=== PATIENT | female | born 1975 | race Caucasian/White ===

== ENCOUNTER 2018-11-15 08:40 | Emergency (ER) | payer OTHER ==
[~2018-11-15 08:40] MED LIST: AMOX500T PO; ARIP10TA9 PO; CLON1TAB PO; DOXY100C2 PO; FLUO40CA9 PO; GUAI-108 PO; HYDR-3165 PO; IBUP200T44 PO; IBUP800T19 PO; KETO10TA PO; LAMO200T2 PO; LISI-334 PO; LISI2.5T PO; METF10007 PO; [UNRECOGNIZED DRUG - OTHER] PO
[2018-11-15 08:57] VITALS: BP 163/99
--- NOTE | 2018-11-15 09:03 | PHYS DOC ---
Past History Past Medical History: Anxiety, Diabetes, Hypertension, Other Past Surgical History: No Surgical History Smoking: Cigarettes, Greater than 1 pack/day Alcohol Use: None Drug Use: None Adult General Chief Complaint Chief Complaint: TEST [facility] HPI 43-year-old female presents with question of . The patient states that God told her that she is even though she had tubal ligation 20 years ago. She took a urine test which was negative at home. She is here for a blood test to confirm her . The patient is on psychiatric medications for bipolar and does not want to take these medications if she is . The patient had some spotting bleeding about 2 months ago. She has had intermittent bleeding since her tubal ligation that is irregular and hard to predict. She d enies fever or chills. Review of Systems Review of Systems Constitutional: Denies fever or chills [] Eyes: Denies change in visual acuity, redness, or eye pain [] HENT: Denies nasal congestion or sore throat [] Respiratory: Denies cough or shortness of breath [] Cardiovascular: No additional information not addressed in HPI [] GI: Denies abdominal pain, nausea, vomiting, bloody stools or diarrhea [] : Denies dysuria or hematuria [] Musculoskeletal: Denies back pain or joint pain [] Integument: Denies rash or skin lesions [] Neurologic: Denies headache, focal weakness or sensory changes [] Endocrine: Denies polyuria or polydipsia [] All other systems were reviewed and found to be within normal limits, except as documented in this note. Allergies Allergies Allergies Coded Allergies Type Severity Reaction Last Updated Verified No Known Drug Allergies 12/20/13 No Physical Exam Physical Exam Constitutional: Well developed, well nourished, no acute distress, non-toxic appearance. [] HENT: Normocephalic, atraumatic, bilateral external ears normal, oropharynx moist, no oral exudates, nose normal. [] Eyes: PERRLA, EOMI, conjunctiva normal, no discharge. [] Neck: Normal range of motion, no tenderness, supple, no stridor. [] Cardiovascular:Heart rate regular rhythm, no murmur [] Lungs & Thorax: Bilateral breath sounds clear to auscultation [] Abdomen: Bowel sounds normal, soft, no tenderness, no masses, no pulsatile masses. [] Skin: Warm, dry, no erythema, no rash. [] Back: No tenderness, no CVA tenderness. [] Extremities: No tenderness, no cyanosis, no clubbing, ROM intact, no edema. [] Neurologic: Alert and oriented X 3, normal motor function, normal sensory function, no focal deficits noted. [] Psychologic: Affect normal, judgement normal, mood normal. [] Current Patient Data Vital Signs Vital Signs Date Time Temp Pulse Resp B/P (MAP) Pulse Ox O2 Delivery O2 Flow Rate FiO2 11/15/18 08:57 99.2 109 22 95 Room Air EKG EKG [] Radiology/Procedures Radiology/Procedures [] Course & Med Decision Making Course & Med Decision Making Pertinent Labs and Imaging studies reviewed. (See chart for details) The patient's hCG is 1. She is not . She is stable for discharge at this time. I have advised the patient to continue taking her psychiatric medications and she states that she will. [] Dragon Disclaimer Dragon Disclaimer This electronic medical record was generated, in whole or in part, using a voice recognition dictation system. Departure Departure: Impression: Primary Impression: Negative test Disposition: HOME, SELF-CARE Condition: STABLE Referrals: FABY TODD (PCP) JANICE MOHR DO Nov 15, 2018 09:03
== END 2018-11-15 10:23 | disposition home or self-care (01) ==
LOC: ER 08:40
DX: Z32.02 Encounter for pregnancy test, result negative (principal); F41.9 Anxiety disorder, unspecified; E11.9 Type 2 diabetes mellitus without complications; I10 Essential (primary) hypertension; F17.210 Nicotine dependence, cigarettes, uncomplicated
CPT/HCPCS: 36415; 84702; 99283

== ENCOUNTER 2018-11-16 07:12 | Emergency (ER) | payer OTHER ==
[~2018-11-16] VITALS: Ht 170.2 cm; Wt 103.0 kg
[2018-11-16 07:20] VITALS: BP 160/94
--- NOTE | 2018-11-16 07:49 | PHYS DOC ---
Past History Past Medical History: Anxiety, Bipolar, Depression, Diabetes, Hypertension, Other Past Surgical History: No Surgical History Smoking: Cigarettes, Greater than 1 pack/day Additional Smoking Information: PACK/DAY Alcohol Use: None Drug Use: None Adult General Chief Complaint Chief Complaint: PSYCH EVALUATION HPI HPI Patient is a 43-year-old female who reports being 7 months . She feels like she is in labor. This is despite a negative test performed yesterday. Patient stopped taking her mental health medications 2 days ago because "God told her to." She also reports, God told her that she is . She has not seen anyone for this . Denies any vaginal bleeding or discharge. Denies any dysuria. She has not had a menstrual period in over 20 years. She denies any suicidal or homicidal ideation.[] Review of Systems Review of Systems Constitutional: Denies fever or chills [] Eyes: Denies change in visual acuity, redness, or eye pain [] HENT: Denies nasal congestion or sore throat [] Respiratory: Denies cough or shortness of breath [] Cardiovascular: No chest pain or palpitations[] GI: Denies abdominal pain, nausea, vomiting, bloody stools or diarrhea [] : Denies dysuria or hematuria [] Musculoskeletal: Denies back pain or joint pain [] Integument: Denies rash or skin lesions [] Neurologic: Denies headache, focal weakness or sensory changes [] Endocrine: Denies polyuria or polydipsia [] All other systems were reviewed and found to be within normal limits, except as documented in this note. Allergies Allergies Allergies Coded Allergies Type Severity Reaction Last Updated Verified No Known Drug Allergies 12/20/13 No Physical Exam Physical Exam Constitutional: Well developed, well nourished, no acute distress, non-toxic appearance. [] HENT: Normocephalic, atraumatic, bilateral external ears normal, oropharynx moist, no oral exudates, nose normal. [] Eyes: PERRLA, EOMI, conjunctiva normal, no discharge. [] Neck: Normal range of motion, no tenderness, supple, no stridor. [] Cardiovascular:Heart rate regular rhythm, no murmur [] Lungs & Thorax: Bilateral breath sounds clear to auscultation [] Abdomen: Bowel sounds normal, soft, no tenderness, no masses, no pulsatile masses. [] Skin: Warm, dry, no erythema, no rash. [] Back: No tenderness, no CVA tenderness. [] Extremities: No tenderness, no cyanosis, no clubbing, ROM intact, no edema. [] Neurologic: Alert and oriented X 3, normal motor function, normal sensory function, no focal deficits noted. [] Psychologic: Affect normal, mood normal. No suicidal or homicidal ideation.[] Current Patient Data Vital Signs Vital Signs Date Time Temp Pulse Resp B/P (MAP) Pulse Ox O2 Delivery O2 Flow Rate FiO2 11/16/18 07:20 98.9 111 16 96 Room Air Lab Results Laboratory Tests Test 11/16/18 07:27 POC Urine HCG, Qualitative hcg negative (Negative) EKG EKG [] Radiology/Procedures Radiology/Procedures Bedside ultrasound performed showed no intrauterine , no free fluid in the abdomen.[] Course & Med Decision Making Course & Med Decision Making Pertinent Labs and Imaging studies reviewed. (See chart for details) Medical decision making: There is no evidence of either on the quantitative test performed yesterday, nor the point of care urine hCG performed today. There is no evidence of an intrauterine on bedside ultrasound. Believe this idea of to be related to mental health disorder for which she needs follow-up by both her primary care physician as well as her mental health team.[] Dragon Disclaimer Dragon Disclaimer This electronic medical record was generated, in whole or in part, using a voice recognition dictation system. Departure Departure: Impression: Primary Impression: Pseudopregnancy Disposition: 01 HOME, SELF-CARE Condition: IMPROVED Referrals: FABY TODD (PCP) Follow-up today Additional Instructions: Follow-up with your primary care physician and [facility] today. Take your medications as prescribed. Return to the ER if any other concerns. GATO PATRICIA DO Nov 16, 2018 07:49
== END 2018-11-16 07:54 | disposition home or self-care (01) ==
LOC: ER 07:12
DX: F45.8 Other somatoform disorders (principal); F41.9 Anxiety disorder, unspecified; F31.9 Bipolar disorder, unspecified; E11.9 Type 2 diabetes mellitus without complications; I10 Essential (primary) hypertension; F17.210 Nicotine dependence, cigarettes, uncomplicated
CPT/HCPCS: 81025; 99284

== ENCOUNTER 2018-12-15 21:55 | Emergency (ER) | payer OTHER ==
[~2018-12-15] VITALS: Ht 170.2 cm; Wt 87.7 kg
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
[2018-12-15 22:24] LABS: BASO # 0.1 x10^3/uL (0.0-0.2); BASO % 1 % (0-3); EOS # 0.1 x10^3/uL (0.0-0.7); EOS % 1 % (0-3); HEMATOCRIT 37.9 % (36.0-47.0); HEMOGLOBIN 12.6 g/dL (12.0-15.5); LYMPH # 3.4 x10^3/uL (1.0-4.8); LYMPH % 29 % (24-48); MEAN CORPUSCULAR HEMOGLOBIN 29 pg (25-35); MEAN CORPUSCULAR HGB CONC 33 g/dL (31-37); MEAN CORPUSCULAR VOLUME 86 fL (79-100); MONO # 0.6 x10^3/uL (0.0-1.1); MONO % 5 % (0-9); NEUT # 7.4 x10^3uL (1.8-7.7); NEUT % 64 % (31-73); PLATELET COUNT 469 x10^3/uL (140-400); RED BLOOD COUNT 4.39 x10^6/uL (3.50-5.40); RED CELL DISTRIBUTION WIDTH 13.3 % (11.5-14.5); WHITE BLOOD COUNT 11.5 x10^3/uL (4.0-11.0)
[2018-12-15] MEDS ORDERED: IV NORMAL SALINE 1,000ML 1,000 ML IV ONE (22:30)
[2018-12-15 22:40] LABS: ALBUMIN 3.6 g/dL (3.4-5.0); ALBUMIN/GLOBULIN RATIO 1.1 (1.0-1.7); CALCIUM 9.3 mg/dL (8.5-10.1); CREATININE 0.7 mg/dL (0.6-1.0); GFR 92.2; POTASSIUM 3.6 mmol/L (3.5-5.1); TOTAL BILIRUBIN 0.1 mg/dL (0.2-1.0); TOTAL PROTEIN 6.9 g/dL (6.4-8.2)
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
[2018-12-15 22:57] VITALS: BP 99/50
== END 2018-12-15 23:10 | disposition home or self-care (01) ==
LOC: ER 21:55
DX: S00.81XA Abrasion of other part of head, initial encounter (principal); R51 Headache; R23.8 Other skin changes; R22.0 Localized swelling, mass and lump, head; F41.9 Anxiety disorder, unspecified; F31.9 Bipolar disorder, unspecified; E11.9 Type 2 diabetes mellitus without complications; I10 Essential (primary) hypertension; F17.210 Nicotine dependence, cigarettes, uncomplicated; Y04.0XXA Assault by unarmed brawl or fight, initial encounter; Y93.89 Activity, other specified; Y92.89 Other specified places as the place of occurrence of the external cause; Y99.8 Other external cause status
CPT/HCPCS: 36415; 70450; 70486; 80053; 85025; 99285-25; J7030

== ENCOUNTER 2019-09-02 13:38 | Emergency (ER) | payer OTHER ==
[~2019-09-02] VITALS: Ht 170.2 cm; Wt 100.3 kg
[~2019-09-02 13:38] MED LIST changes: -LAMO200T2 PO; +LAMO200T6 PO
[2019-09-02 13:45] VITALS: BP 133/75
[2019-09-02] MEDS ORDERED: DICL75TA PO (14:13)
[2019-09-02] MEDS ORDERED: PRED50TA PO (14:13)
--- NOTE | 2019-09-02 14:13 | PHYS DOC ---
Past History Past Medical History: Anxiety, Bipolar, Depression, Diabetes, Hypertension, Other Past Surgical History: No Surgical History Smoking: Cigarettes, Greater than 1 pack/day Alcohol Use: None Drug Use: None Adult General Chief Complaint Chief Complaint: Neck Pain [facility] HPI Patient is a 44-year-old female who presents secondary to concern for enlarged neck nodule. Nodules and present 6 months. She had an ultrasound pe rformed on August 20 and has a follow-up appointment in 3 days with her primary care physician to discuss results. Patient states that her pain has increased recently. No fever or chills reported. She states that the nodule tends to wax and wane in size Review of Systems Review of Systems All other ROS is negative unless otherwise stated in HPI Allergies Allergies Allergies Coded Allergies Type Severity Reaction Last Updated Verified No Known Drug Allergies 12/20/13 No Physical Exam Physical Exam See above Constitutional: Well developed, well nourished, no acute distress, non-toxic appearance. [] HENT: Normocephalic, atraumatic, bilateral external ears normal, oropharynx moist, no oral exudates, nose normal. [] Eyes: PERRLA, EOMI, conjunctiva normal, no discharge. [] Neck: Normal range of motion, there is a 1.5; nodule on the right side of the neck below the jawline consistent with lymph node as it is somewhat firm and freely movable. Cardiovascular:Heart rate regular rhythm, no murmur [] Lungs & Thorax: Bilateral breath sounds clear to auscultation [] Skin: Warm, dry, no erythema, no rash. [] Back: No tenderness, no CVA tenderness. [] Extremities: No tenderness, no cyanosis, no clubbing, ROM intact, no edema. [] Neurologic: Alert and oriented X 3, normal motor function, normal sensory functi on, no focal deficits noted. [] Psychologic: Affect normal, judgement normal, mood normal. [] EKG EKG [] Radiology/Procedures Radiology/Procedures [] Course & Med Decision Making Course & Med Decision Making Pertinent Labs and Imaging studies reviewed. (See chart for details) Patient seen for painful nodule in her neck that appears to be a lymph node. I tried to find the results of her ultrasound but was unsuccessful. We'll start her on prednisone and diclofenac for pain and inflammation and she is to follow- up with her provider in 3 days. Patient was understanding and is stable for discharge. Dragon Disclaimer Dragon Disclaimer This electronic medical record was generated, in whole or in part, using a voice recognition dictation system. Departure Departure: Impression: Primary Impression: Neck nodule Disposition: HOME, SELF-CARE Condition: STABLE Referrals: GORDON MAHER (PCP) Follow up Wednesday for Ultrasound results Patient Instructions: Sore Throat Scripts Prednisone (PREDNISONE) 50 Mg Tablet 50 MG PO DAILY for Neck Nodule for 5 Days, #5 TAB Prov: LATOSHA AMANDA DO 09/02/19 Diclofenac Sodium (DICLOFENAC SODIUM) 75 Mg Tablet.dr 1 TAB PO BID for Neck Pain for 10 Days, #20 TAB 1 Refill Prov: LATOSHA AMANDA DO 09/02/19 LATOSHA AMANDA DO Sep 02, 2019 14:13
== END 2019-09-02 14:24 | disposition home or self-care (01) ==
LOC: ER 13:38
DX: R22.1 Localized swelling, mass and lump, neck (principal); E11.9 Type 2 diabetes mellitus without complications; I10 Essential (primary) hypertension; F17.210 Nicotine dependence, cigarettes, uncomplicated
CPT/HCPCS: 99283

== ENCOUNTER 2019-09-11 11:36 | Emergency (ER) | payer OTHER ==
[~2019-09-11] VITALS: Ht 170.2 cm; Wt 97.7 kg
[~2019-09-11 11:36] MED LIST changes: +DICL75TA PO; +PRED50TA PO
[2019-09-11] MEDS ORDERED: IV NORMAL SALINE 1,000ML 1,000 ML IV ONE ×2 (11:45→12:30)
[2019-09-11 12:05] VITALS: BP 115/53
[2019-09-11 12:14] LABS: BASO # 0.1 x10^3/uL (0.0-0.2); BASO % 1 % (0-3); EOS # 0.1 x10^3/uL (0.0-0.7); EOS % 1 % (0-3); HEMOGLOBIN 11.5 g/dL (12.0-15.5); LYMPH # 2.5 x10^3/uL (1.0-4.8); LYMPH % 29 % (24-48); MEAN CORPUSCULAR HEMOGLOBIN 29 pg (25-35); MEAN CORPUSCULAR HGB CONC 33 g/dL (31-37); MEAN CORPUSCULAR VOLUME 89 fL (79-100); MONO # 0.5 x10^3/uL (0.0-1.1); MONO % 6 % (0-9); NEUT # 5.4 x10^3uL (1.8-7.7); NEUT % 63 % (31-73); PLATELET COUNT 348 x10^3/uL (140-400); RED BLOOD COUNT 3.95 x10^6/uL (3.50-5.40); RED CELL DISTRIBUTION WIDTH 13.7 % (11.5-14.5); WHITE BLOOD COUNT 8.6 x10^3/uL (4.0-11.0)
[2019-09-11 12:20] LABS: CALCIUM 8.6 mg/dL (8.5-10.1); CREATININE 1.2 mg/dL (0.6-1.0); GFR 49.3; POTASSIUM 3.9 mmol/L (3.5-5.1)
[2019-09-11 12:26] LABS: ALBUMIN 3.1 g/dL (3.4-5.0); ALBUMIN/GLOBULIN RATIO 0.9 (1.0-1.7); TOTAL BILIRUBIN 0.1 mg/dL (0.2-1.0); TOTAL PROTEIN 6.6 g/dL (6.4-8.2)
[2019-09-11 12:35] LABS: BACTERIA,URINE FEW /HPF (0-FEW); BILIRUBIN,URINE NEG (NEG); CLARITY,URINE CLEAR; COLOR,URINE YELLOW; GLUCOSE,URINE >=1000 mg/dL (NEG); NITRITE,URINE NEG (NEG); SQUAMOUS EPITHELIAL CELL,UR FEW /LPF; UROBILINOGEN,URINE 0.2 mg/dL (0.2 mg/dL)
[2019-09-11 12:36] LABS: YEAST,URINE PRESENT /HPF
[2019-09-11] MEDS ORDERED: FLUCONAZOLE 100 MG TABLET. PO ONE (13:15)
--- NOTE | 2019-09-11 14:37 | PHYS DOC ---
Past History Past Medical History: Anxiety, Bipolar, Depression, Diabetes Additional Past Medical Histor: PTSD Past Surgical History: No Surgical History Smoking: Cigarettes, Greater than 1 pack/day Alcohol Use: None Drug Use: None Adult General Chief Complaint Chief Complaint: HYPERGLYCEMIA HPI HPI Patient is a 44-year-old female who was brought here from a mental health treatment center due to elevated blood sugar. She has history of diabetes, she is on 2 different medications for it. Patient [facility] to [facility] recently to treat her mental health illness. Patient had been taken her medications as prescribed. Patient said for the last 5 days she had been feeling more thirsty, urinating more frequently, cramping in her legs. Patient checked her blood sugar this morning and it was 580 so EMS was called to take her here for evaluation. Patient denies any abdominal pain, no nausea or vo miting, no chest pain, no trouble breathing. Denies any fever. She denies suicidal ideation. Review of Systems Review of Systems All other ROS is negative unless otherwise noted in HPI Current Medications Current Medications Current Medications Medications (Trade) Dose Ordered Sig/Maile Start Time Stop Time Status Last Admin Dose Admin Fluconazole (Diflucan) 200 mg 1X ONCE 09/11/19 13:15 09/11/19 13:16 DC 09/11/19 13:03 200 MG Sodium Chloride 1,000 ml @ 1,000 mls/hr 1X ONCE 09/11/19 12:30 09/11/19 13:29 DC 09/11/19 12:30 1,000 MLS/HR Allergies Allergies Allergies Coded Allergies Type Severity Reaction Last Updated Verified No Known Drug Allergies 12/20/13 No Physical Exam Physical Exam See above Constitutional: Well developed, well nourished, no acute distress, non-toxic appearance. [] HENT: Normocephalic, atraumatic, bilateral external ears normal, oropharynx moist, no oral exudates, nose normal. [] Eyes: PERRLA, EOMI, conjunctiva normal, no discharge. [] Neck: Normal range of motion, no tenderness, supple, no stridor. [] Cardiovascular:Heart rate regular rhythm, no murmur [] Lungs & Thorax: Bilateral breath sounds clear to auscultation [] Abdomen: Bowel sounds normal, soft, no tenderness, no masses, no pulsatile masses. [] Skin: Warm, dry, no erythema, no rash. [] Back: No tenderness, no CVA tenderness. [] Extremities: No tenderness, no cyanosis, no clubbing, ROM intact, no edema. [] Neurologic: Alert and oriented X 3, normal motor function, normal sensory function, no focal deficits noted. [] Psychologic: Affect normal, judgement normal, mood normal. [] Current Patient Data Vital Signs Vital Signs Date Time Temp Pulse Resp B/P (MAP) Pulse Ox O2 Delivery O2 Flow Rate FiO2 09/11/19 12:05 98.9 113 22 115/53 (73) 95 Room Air Lab Results Laboratory Tests Test 09/11/19 11:41 09/11/19 11:45 09/11/19 11:52 09/11/19 13:46 Glucose (Fingerstick) 454 mg/dL (70-99) H 223 mg/dL (70-99) H White Blood Count 8.6 x10^3/uL (4.0-11.0) Red Blood Count 3.95 x10^6/uL (3.50-5.40) Hemoglobin 11.5 g/dL (12.0-15.5) L Hematocrit 35.0 % (36.0-47.0) L Mean Corpuscular Volume 89 fL (79-100) Mean Corpuscular Hemoglobin 29 pg (25-35) Mean Corpuscular Hemoglobin Concent 33 g/dL (31-37) Red Cell Distribution Width 13.7 % (11.5-14.5) Platelet Count 348 x10^3/uL (140-400) Neutrophils (%) (Auto) 63 % (31-73) Lymphocytes (%) (Auto) 29 % (24-48) Monocytes (%) (Auto) 6 % (0-9) Eosinophils (%) (Auto) 1 % (0-3) Basophils (%) (Auto) 1 % (0-3) Neutrophils # (Auto) 5.4 x10^3uL (1.8-7.7) Lymphocytes # (Auto) 2.5 x10^3/uL (1.0-4.8) Monocytes # (Auto) 0.5 x10^3/uL (0.0-1.1) Eosinophils # (Auto) 0.1 x10^3/uL (0.0-0.7) Basophils # (Auto) 0.1 x10^3/uL (0.0-0.2) Sodium Level 136 mmol/L (136-145) Potassium Level 3.9 mmol/L (3.5-5.1) Chloride Level 100 mmol/L (98-107) Carbon Dioxide Level 26 mmol/L (21-32) Anion Gap 10 (6-14) Blood Urea Nitrogen 17 mg/dL (7-20) Creatinine 1.2 mg/dL (0.6-1.0) H Estimated GFR (Cockcroft-Gault) 49.3 BUN/Creatinine Ratio 14 (6-20) Glucose Level 425 mg/dL (70-99) H Calcium Level 8.6 mg/dL (8.5-10.1) Total Bilirubin 0.1 mg/dL (0.2-1.0) L Aspartate Amino Transferase (AST) 17 U/L (15-37) Alanine Aminotransferase (ALT) 36 U/L (14-59) Alkaline Phosphatase 58 U/L (46-116) Total Protein 6.6 g/dL (6.4-8.2) Albumin 3.1 g/dL (3.4-5.0) L Albumin/Globulin Ratio 0.9 (1.0-1.7) L Lipase 158 U/L (73-393) Acetone Level Neg (NEG) Urine Collection Type Unknown Urine Color Yellow Urine Clarity Clear Urine pH 6.0 Urine Specific [place] 1.010 Urine Protein Neg (NEG-TRACE) Urine Glucose (UA) >=1000 mg/dL (NEG) Urine Ketones (Stick) Neg mg/dL (NEG) Urine Blood Trace (NEG) Urine Nitrite Neg (NEG) Urine Bilirubin Neg (NEG) Urine Urobilinogen Dipstick 0.2 mg/dL (0.2 mg/dL) Urine Leukocyte Esterase Neg (NEG) Urine RBC 3-5 /HPF (0-2) Urine WBC 1-4 /HPF (0-4) Urine Squamous Epithelial Cells Few /LPF Urine Bacteria Few /HPF (0-FEW) Urine Mucus Slight /LPF Urine Yeast Present /HPF EKG EKG [] Radiology/Procedures Radiology/Procedures [] Course & Med Decision Making Course & Med Decision Making Pertinent Labs and Imaging studies reviewed. (See chart for details) Patient is a 44-year-old female who was FOUND to have uncontrolled diabetes. Her blood sugar had improved after IV fluid in ER. Patient felt much better. Patient will be discharged home, she will need to follow her family doctor for medication readjustment. Patient was also FOUND TO HAVE YEAST in her urine, she was given 200 mg of Diflucan. Dragon Disclaimer Dragon Disclaimer This electronic medical record was generated, in whole or in part, using a voice recognition dictation system. Departure Departure: Impression: Primary Impression: Hyperglycemia Additional Impression: Yeast cystitis Disposition: HOME, SELF-CARE Condition: STABLE Referrals: GORDON MAHER (PCP) FOLLOW UP WITH YOUR DOCTOR THIS WEEK FOR REEVALUATION. Patient Instructions: Hyperglycemia Additional Instructions: Thank you for visiting our Emergency Department. We appreciate you trusting us with your care. If any additional problems come up don't hesitate to return to visit us. Please follow up with your primary care provider so they can plan additional care if needed and know about the problem that you had. If symptoms worsen come back to the Emergency Department. Any concerning symptoms that start such as chest pain, shortness of air, weakness or numbness on one side of the body, running high fevers or any other concerning symptoms return to the ER. Problem Qualifiers BETSY DAVILA DO Sep 11, 2019 14:37
== END 2019-09-11 14:46 | disposition home or self-care (01) ==
LOC: ER 11:36
DX: E11.65 Type 2 diabetes mellitus with hyperglycemia (principal); N30.90 Cystitis, unspecified without hematuria; B96.89 Other specified bacterial agents as the cause of diseases classified elsewhere; F17.210 Nicotine dependence, cigarettes, uncomplicated
CPT/HCPCS: 36415; 80053; 81001; 82010; 82947; 83690; 85025; 96360; 96361; 99283; J7030

== ENCOUNTER 2020-03-17 13:14 | Emergency (ER) | payer OTHER ==
[~2020-03-17] VITALS: Ht 170.2 cm; Wt 97.7 kg
[2020-03-17 13:15] VITALS: BP 147/87
--- NOTE | 2020-03-17 13:59 | PHYS DOC ---
Past History Past Medical History: Anxiety, Bipolar, Depression, Diabetes Additional Past Medical Histor: PTSD Past Surgical History: No Surgical History Smoking: Cigarettes, Greater than 1 pack/day Alcohol Use: None Drug Use: None General Adult EDM: Chief Complaint: MECHANICAL FALL HPI: HPI: 45-year-old female presents via EMS for public nudity. The patient was walking down the street naked. She was reported to be tased by police. EMS was called and the patient agreed to be checked out medically. She told my nurse that she is so she wants a test. She denies any pain or complaints to me. She does want me to look at her back with the use a taser. Review of Systems: Review of Systems: Constitutional: Denies fever or chills Eyes: Denies change in visual acuity HENT: Denies nasal congestion or sore throat Respiratory: Denies cough or shortness of breath Cardiovascular: Denies chest pain or edema GI: Denies abdominal pain, nausea, vomiting, bloody stools or diarrhea : Denies dysuria Musculoskeletal: Denies back pain or joint pain Integument: Taser nixon Neurologic: Denies headache, focal weakness or sensory changes Endocrine: Denies polyuria or polydipsia Lymphatic: Denies swollen glands Psychiatric: Denies depression or anxiety Heart Score: Risk Factors: Risk Factors: DM, Current or recent (<one month) smoker, HTN, HLP, family history of CAD, obesity. Risk Scores: Score 0 - 3: 2.5% MACE over next 6 weeks - Discharge Home Score 4 - 6: 20.3% MACE over next 6 weeks - Admit for Clinical Observation Score 7 - 10: 72.7% MACE over next 6 weeks - Early Invasive Strategies Allergies: Allergies: Allergies Coded Allergies Type Severity Reaction Last Updated Verified No Known Drug Allergies 12/20/13 No Physical Exam: PE: Constitutional: Well developed, obese, well nourished, no acute distress, non- toxic appearance. [] HENT: Normocephalic, atraumatic, bilateral external ears normal, oropharynx moist, no oral exudates, nose normal. [] Eyes: PERRLA, EOMI, conjunctiva normal, no discharge. [] Neck: Normal range of motion, no tenderness, supple, no stridor. [] Cardiovascular: Heart rate regular rhythm, no murmur [] Lungs & Thorax: Bilateral breath sounds clear to auscultation [] Abdomen: Bowel sounds normal, soft, no tenderness, no masses, no pulsatile masses. [] Skin: Warm, dry, no erythema, no rash. No sign of taser felix. [] Back: No tenderness, no CVA tenderness. [] Extremities: No tenderness, no cyanosis, no clubbing, ROM intact, no edema. [] Neurologic: Alert and oriented X 3, normal motor function, normal sensory function, no focal deficits noted. [] Psychologic: Affect normal, judgement questionable, mood anxious. [] Current Patient Data: Labs: Laboratory Tests Test 03/17/20 13:38 POC Urine HCG, Qualitative hcg negative (Negative) Vital Signs: Vital Signs Date Time Temp Pulse Resp B/P (MAP) Pulse Ox O2 Delivery O2 Flow Rate FiO2 03/17/20 13:15 98.3 121 20 147/87 (107) 94 Room Air EKG: EKG: [] Radiology/Procedures: Radiology/Procedures: [] Course & Med Decision Making: Course & Med Decision Making Pertinent Labs and Imaging studies reviewed. (See chart for details) See anything physically wrong with patient. She is not . Add on CK surveillance. And I think any further work-up is necessary. She is likely intoxicated with some substance but she knows who she is, where she is, and is able to stand and walk on her own. She is stable for discharge at this time. [] Dragon Disclaimer: Dragon Disclaimer: This electronic medical record was generated, in whole or in part, using a voice recognition dictation system. Departure Departure: Impression: Primary Impression: History of Taser shock Disposition: HOME/RESIDENCE PRIOR TO ADM Condition: STABLE Referrals: GORDON MAHER (PCP) Justification of Admission: Justification of Admission: Justification of Admission Dx: N/A JANICE MOHR DO Mar 17, 2020 13:59
[2020-03-17 14:22] LABS: BILIRUBIN,URINE NEG (NEG); CLARITY,URINE HAZY; COLOR,URINE YELLOW; GLUCOSE,URINE >=1000 mg/dL (NEG)
[2020-03-17 14:23] LABS: BACTERIA,URINE FEW /HPF (0-FEW); NITRITE,URINE NEG (NEG); SQUAMOUS EPITHELIAL CELL,UR MOD /LPF; UROBILINOGEN,URINE 0.2 mg/dL (0.2 mg/dL)
== END 2020-03-17 14:34 | disposition home or self-care (01) ==
LOC: ER 13:14
DX: T75.4XXA Electrocution, initial encounter (principal); Z32.02 Encounter for pregnancy test, result negative; E11.9 Type 2 diabetes mellitus without complications; F41.9 Anxiety disorder, unspecified; F31.9 Bipolar disorder, unspecified; F43.10 Post-traumatic stress disorder, unspecified; F17.210 Nicotine dependence, cigarettes, uncomplicated; W86.8XXA Exposure to other electric current, initial encounter; Y93.89 Activity, other specified; Y92.89 Other specified places as the place of occurrence of the external cause; Y99.8 Other external cause status
CPT/HCPCS: 81001; 81025; 99283

== ENCOUNTER 2020-08-02 11:47 | Emergency (ER) | payer SELFPAY ==
[~2020-08-02] VITALS: Ht 170.2 cm; Wt 83.8 kg
[2020-08-02 11:59] VITALS: BP 144/67
[2020-08-02 12:38] LABS: BACTERIA,URINE 0 /HPF (0-FEW); BILIRUBIN,URINE NEG (NEG); CLARITY,URINE CLEAR; COLOR,URINE YELLOW; GLUCOSE,URINE >=1000 mg/dL (NEG); NITRITE,URINE NEG (NEG); RBC,URINE 0 /HPF (0-2); SQUAMOUS EPITHELIAL CELL,UR OCC /LPF; UROBILINOGEN,URINE 0.2 mg/dL (0.2 mg/dL); WBC,URINE 0 /HPF (0-4)
[2020-08-02 13:11] LABS: BASO # 0.1 x10^3/uL (0.0-0.2); BASO % 1 % (0-3); EOS # 0.1 x10^3/uL (0.0-0.7); EOS % 1 % (0-3); HEMATOCRIT 41.5 % (36.0-47.0); HEMOGLOBIN 13.9 g/dL (12.0-15.5); LYMPH # 3.1 x10^3/uL (1.0-4.8); LYMPH % 31 % (24-48); MEAN CORPUSCULAR HEMOGLOBIN 29 pg (25-35); MEAN CORPUSCULAR HGB CONC 34 g/dL (31-37); MEAN CORPUSCULAR VOLUME 85 fL (79-100); MONO # 0.5 x10^3/uL (0.0-1.1); MONO % 5 % (0-9); NEUT # 6.2 x10^3uL (1.8-7.7); NEUT % 62 % (31-73); PLATELET COUNT 468 x10^3/uL (140-400); RED BLOOD COUNT 4.87 x10^6/uL (3.50-5.40); RED CELL DISTRIBUTION WIDTH 14.3 % (11.5-14.5); WHITE BLOOD COUNT 9.9 x10^3/uL (4.0-11.0)
[2020-08-02 13:27] LABS: CREATININE 0.8 mg/dL (0.6-1.0); GFR 78.3
[2020-08-02 13:33] LABS: ALBUMIN 3.6 g/dL (3.4-5.0); ALBUMIN/GLOBULIN RATIO 0.8 (1.0-1.7); TOTAL BILIRUBIN 0.2 mg/dL (0.2-1.0)
--- NOTE | 2020-08-02 13:49 | PHYS DOC ---
Past History Past Medical History: Anxiety, Bipolar, Depression, Diabetes Additional Past Medical Histor: PTSD (MERLE MARAVILLA APRN) Past Surgical History: No Surgical History (MERLE MARAVILLA APRN) Smoking: Cigarettes, Greater than 1 pack/day Alcohol Use: None Drug Use: None (MERLE MARAVILLA APRN) Adult General Chief Complaint Chief Complaint: PAIN ON URINATION HPI HPI Patient is a 45-year-old female presents to the emergency department complaining of burning with urination for the past 2 weeks. Patient states that she noticed the burning just slightly in the vaginal area 2 weeks ago and has become worse since. Patient denies seeing blood in her urine, denies vaginal discharge, denies STI concerns. Patient states the last time she had a urinary tract infection was 2 years ago and this presents similar to that. Patient states she told triage nurse that there was blood in her urine, however she clarifies this by stating that she noticed some blood after she wipes and did not actually visualize blood in her urine. Patient denies any nausea vomiting or diarrhea. Patient denies any abdominal pains. Patient denies any recent fever or chills, chest pains, cough, shortness of breath, or congestion. Patient denies any other symptoms. Patient states that she is a type II diabetic however cannot afford her medication and does not take her Metformin like she is supposed to. Patient also states she is not interested in taking Metformin stating that she does not have the money to afford her medications. (MERLE MARAVILLA APRN) Review of Systems Review of Systems 14 body systems of review of systems have been reviewed. See HPI for pertinent positives and negative responses, otherwise all other systems are negative, nonpertinent or noncontributory. (MERLE MARAVILLA DOCK SUPERINTENDENT) Allergies Allergies Allergies Coded Allergies Type Severity Reaction Last Updated Verified No Known Drug Allergies 12/20/13 No (MERLE MARAVILLA APRN) Physical Exam Physical Exam Constitutional: Well developed, well nourished, no acute distress, non-toxic appearance. HENT: Normocephalic, atraumatic, bilateral external ears normal, oropharynx moist, no oral exudates, nose normal. Eyes: PERRLA, EOMI, conjunctiva normal, no discharge. Neck: Normal range of motion, no tenderness, supple, no stridor. Cardiovascular:Heart rate regular rhythm, no murmur Lungs & Thorax: Bilateral breath sounds clear to auscultation Abdomen: Bowel sounds normal, soft, no tenderness, no masses, no pulsatile masses. Skin: Warm, dry, no erythema, no rash. Back: No tenderness, no CVA tenderness. Extremities: No tenderness, no cyanosis, no clubbing, ROM intact, no edema. Neurologic: Alert and oriented X 3, normal motor function, normal sensory function, no focal deficits noted. Psychologic: Affect normal, judgement normal, mood normal. : Pelvic exam was performed with female nurse entry level administrative assistant. External exam showed more than 10 open vaginal lesions measuring approximately 2 mm to 3 mm in di ameter consistent with genital herpes. Labia excoriated. No discharge noted from vaginal opening. Internal speculum exam showed scant vaginal discharge near 6 o'clock position of cervix. Noted vaginal wall lesions measuring approximately 2 mm to 3 mm in diameter with redness around lesions. Bimanual exam no cervical motion tenderness, no left or right adnexal pain elicited. P atient reported uncomfortable bimanual exam, but was not truly painful for cervical motion tenderness or adnexal examination. (MERLE MARAVILLA APRN) Current Patient Data Vital Signs Vital Signs Date Time Temp Pulse Resp B/P (MAP) Pulse Ox O2 Delivery O2 Flow Rate FiO2 08/02/20 11:59 97.9 97 16 144/67 (92) 100 Room Air Lab Results Laboratory Tests Test 08/02/20 11:56 08/02/20 12:55 08/02/20 12:58 Urine Collection Type Unknown Urine Color Yellow Urine Clarity Clear Urine pH 5.5 Urine Specific [place] 1.020 Urine Protein Neg Urine Glucose (UA) >=1000 mg/dL Urine Ketones (Stick) Neg mg/dL Urine Blood Neg Urine Nitrite Neg Urine Bilirubin Neg Urine Urobilinogen Dipstick 0.2 mg/dL Urine Leukocyte Esterase Neg Urine RBC 0 /HPF Urine WBC 0 /HPF Urine Squamous Epithelial Cells Occ /LPF Urine Bacteria 0 /HPF White Blood Count 9.9 x10^3/uL Red Blood Count 4.87 x10^6/uL Hemoglobin 13.9 g/dL Hematocrit 41.5 % Mean Corpuscular Volume 85 fL Mean Corpuscular Hemoglobin 29 pg Mean Corpuscular Hemoglobin Concent 34 g/dL Red Cell Distribution Width 14.3 % Platelet Count 468 x10^3/uL Neutrophils (%) (Auto) 62 % Lymphocytes (%) (Auto) 31 % Monocytes (%) (Auto) 5 % Eosinophils (%) (Auto) 1 % Basophils (%) (Auto) 1 % Neutrophils # (Auto) 6.2 x10^3uL Lymphocytes # (Auto) 3.1 x10^3/uL Monocytes # (Auto) 0.5 x10^3/uL Eosinophils # (Auto) 0.1 x10^3/uL Basophils # (Auto) 0.1 x10^3/uL Sodium Level 137 mmol/L Potassium Level 4.0 mmol/L Chloride Level 99 mmol/L Carbon Dioxide Level 27 mmol/L Anion Gap 11 Blood Urea Nitrogen 22 mg/dL Creatinine 0.8 mg/dL Estimated GFR (Cockcroft-Gault) 78.3 BUN/Creatinine Ratio 28 Glucose Level 279 mg/dL Calcium Level 9.0 mg/dL Total Bilirubin 0.2 mg/dL Aspartate Amino Transf (AST/SGOT) 11 U/L Alanine Aminotransferase (ALT/SGPT) 29 U/L Alkaline Phosphatase 88 U/L Total Protein 8.0 g/dL Albumin 3.6 g/dL Albumin/Globulin Ratio 0.8 Acetone Level Neg Glucose (Fingerstick) 267 mg/dL Current Medications Medications (Trade) Dose Ordered Sig/Maile Route PRN Reason Start Time Stop Time Status Last Admin Dose Admin Acetaminophen/ Hydrocodone Bitart (Lortab 5/325) 2 tab 1X ONCE PO 08/02/20 14:00 08/02/20 14:01 DC 08/02/20 14:02 Acyclovir (Zovirax) 400 mg 1X ONCE PO 08/02/20 14:00 08/02/20 14:01 DC 08/02/20 14:02 Acetaminophen/ Hydrocodone Bitart (Lortab 5/325) 1 tab STK-MED ONCE .ROUTE 08/02/20 14:01 08/02/20 14:01 DC Laboratory Tests Test 08/02/20 11:56 08/02/20 12:55 08/02/20 12:58 Urine Collection Type Unknown Urine Color Yellow Urine Clarity Clear Urine pH 5.5 Urine Specific [place] 1.020 Urine Protein Neg (NEG-TRACE) Urine Glucose (UA) >=1000 mg/dL (NEG) Urine Ketones (Stick) Neg mg/dL (NEG) Urine Blood Neg (NEG) Urine Nitrite Neg (NEG) Urine Bilirubin Neg (NEG) Urine Urobilinogen Dipstick 0.2 mg/dL (0.2 mg/dL) Urine Leukocyte Esterase Neg (NEG) Urine RBC 0 /HPF (0-2) Urine WBC 0 /HPF (0-4) Urine Squamous Epithelial Cells Occ /LPF Urine Bacteria 0 /HPF (0-FEW) White Blood Count 9.9 x10^3/uL (4.0-11.0) Red Blood Count 4.87 x10^6/uL (3.50-5.40) Hemoglobin 13.9 g/dL (12.0-15.5) Hematocrit 41.5 % (36.0-47.0) Mean Corpuscular Volume 85 fL (79-100) Mean Corpuscular Hemoglobin 29 pg (25-35) Mean Corpuscular Hemoglobin Concent 34 g/dL (31-37) Red Cell Distribution Width 14.3 % (11.5-14.5) Platelet Count 468 x10^3/uL (140-400) H Neutrophils (%) (Auto) 62 % (31-73) Lymphocytes (%) (Auto) 31 % (24-48) Monocytes (%) (Auto) 5 % (0-9) Eosinophils (%) (Auto) 1 % (0-3) Basophils (%) (Auto) 1 % (0-3) Neutrophils # (Auto) 6.2 x10^3uL (1.8-7.7) Lymphocytes # (Auto) 3.1 x10^3/uL (1.0-4.8) Monocytes # (Auto) 0.5 x10^3/uL (0.0-1.1) Eosinophils # (Auto) 0.1 x10^3/uL (0.0-0.7) Basophils # (Auto) 0.1 x10^3/uL (0.0-0.2) Sodium Level 137 mmol/L (136-145) Potassium Level 4.0 mmol/L (3.5-5.1) Chloride Level 99 mmol/L (98-107) Carbon Dioxide Level 27 mmol/L (21-32) Anion Gap 11 (6-14) Blood Urea Nitrogen 22 mg/dL (7-20) H Creatinine 0.8 mg/dL (0.6-1.0) Estimated GFR (Cockcroft-Gault) 78.3 BUN/Creatinine Ratio 28 (6-20) H Glucose Level 279 mg/dL (70-99) H Calcium Level 9.0 mg/dL (8.5-10.1) Total Bilirubin 0.2 mg/dL (0.2-1.0) Aspartate Amino Transferase (AST) 11 U/L (15-37) L Alanine Aminotransferase (ALT) 29 U/L (14-59) Alkaline Phosphatase 88 U/L (46-116) Total Protein 8.0 g/dL (6.4-8.2) Albumin 3.6 g/dL (3.4-5.0) Albumin/Globulin Ratio 0.8 (1.0-1.7) L Acetone Level Neg (NEG) Glucose (Fingerstick) 267 mg/dL (70-99) H (MERLE MARAVILLA APRN) EKG EKG [] (MERLE MARAVILLA APRN) Radiology/Procedures Radiology/Procedures [] (MERLE MARAVILLA APRN) Heart Score Risk Factors: Risk Factors: DM, Current or recent (<one month) smoker, HTN, HLP, family history of CAD, obesity. Risk Scores: Risk Factors: DM, Current or recent (<one month) smoker, HTN, HLP, family history of CAD, obesity. (MERLE MARAVILLA APRN) Course & Med Decision Making Course & Med Decision Making Pertinent Labs and Imaging studies reviewed. (See chart for details) 45-year-old female presents emergency department complaining of burning with urination for 2 weeks. Patient had reported she seen blood in her urine, but then later clarified she had not visualized any blood in her urine only seen some scant blood when she wiped. Patient reports that she had a hysterectomy in the past and no longer has menstrual cycles. The patient's urine was not infected. The patient revealed that she has a history of genital herpes, noted she has not had a genital herpes breakout in 20 years. Discussed findings on pelvic examination consistent with genital herpes with the patient.. The patient's wet prep was negative for clue cells or yeast. This is most likely a genital herpes breakout as evidenced by visualizing open lesions on external vaginal vulva and internal vaginal dong. The patient did report a history of type 2 diabetes, however she states that she cannot afford her medicines and is not interested in a medication regimen to control her type 2 diabetes. Lab work was drawn to evaluate her diabetes control, the patient was not in DKA, her serum blood sugar was 279. Encourage patient to start diabetes medication regimen, patient again reported she will not take her medication as she cannot afford to. Patient was given 2 Vicodin p.o. in the emergency department, along with first dose 400 mg acyclovir. Encouraged patient to use barrier protection during sexual intercourse. Patient gave verbal understanding of discharge home prescription instructions, return to ER concerns, had no further questions or concerns and was discharged to home. Impression: #1 genital herpes breakout. This is unlikely an HSV1 breakout, cellulitis, fungal infection, lichen planus, atopic dermatitis, or urethritis. (MERLE MARAVILLA APRN) Course & Med Decision Making I oversaw on the above date of service of this patient and discussed the care with the CARD PUNCHER. I agree with the findings, plan of care, and disposition as documented. (YOSELIN MURILLO DO) Dragon Disclaimer Dragon Disclaimer This electronic medical record was generated, in whole or in part, using a voice recognition dictation system. (MERLE MARAVILLA APRN) Departure Departure: Impression: Primary Impression: Genital herpes Disposition: 01 DC HOME SELF CARE/HOMELESS Condition: STABLE Referrals: GORDON MAHER (PCP) Patient Instructions: Genital Herpes Additional Instructions: Please take medications as prescribed, return to emergency department for worsening concerns or worsening symptoms. I encourage you to please follow-up with your doctor and start on type 2 diabetes medication. EMERGENCY DEPARTMENT GENERAL DISCHARGE INSTRUCTIONS Thank you for coming to [facility] (ED) today and trusting us with you care. We trust that you had a positivie experience in our Emergency Department. If you wish to speak to the department management, you may call the director at [phone]. YOUR FOLLOW UP INSTRUCTIONS ARE FOLLOWS: 1. Do you have a private Doctor? If you do not have a private doctor, please ask for a resource list of physicians or clinics that may be able to assist you with follow up care. 2. The Emergency Physician has interpreted your x-rays. The X-Ray specialist will also review them. If there is a change in the findings, you will be notified in 48 hours when at all possible. 3. A lab test or culture has been done, your results will be reviewed and you will be notified if you need a change in treatment. ADDITIONAL INSTRUCTIONS AND INFORMATION: 1. Your care today has been supervised by a physician who is specially trained in emergency care. Many problems require more than one evaluation for a complete diagnosis and treatment. We recommend that you schedule your follow up appointment as recommended to ensure complete treatment of you illness or injury. If you are unable to obtain follow up care and continue to have a problem, or if your condition worsens, we recommend that you return to the ED. 2. We are not able to safely determine your condition over the phone nor are we able to give sound medical advice over the phone. For these safety reasons, if you call for medical advice we will ask you to come to the ED for further evaluation. 3. If you have any questions regarding these discharge instructions please call the ED at [phone]. SAFETY INFORMATION: In the interest of safety, wellness, and injury prevention; we encourage you to wear your sealbelt, if you smoke; quite smoking, and we encourage family to use a protective helmet for bicycling and other sporting events that present an increased risk for head injury. IF YOUR SYMPTOMS WORSEN OR NEW SYMPTOMS DEVELOP, OR YOU HAVE CONCERNS ABOUT YOUR CONDITION; OR IF YOUR CONDITION WORSENS WHILE YOU ARE WAITING FOR YOUR FOLLOW UP APPOINTMENT; EITHER CONTACT YOUR PRIMARY CARE DOCTOR, THE PHYSICIAN WHOSE NAME AND NUMBER YOU WERE GIVEN, OR RETURN TO THE ED IMMEDIATELY. Scripts Acyclovir (ACYCLOVIR) 400 Mg Tablet 1 TAB PO TID for GENITAL INFECTION for 5 Days, #15 TAB Prov: MERLE MARAVILLA APRN 08/02/20 Problem Qualifiers Primary Impression: Genital herpes Herpes simplex infection site: vulvovaginitis Qualified Codes: A60.04 - Herpesviral vulvovaginitis MERLE MARAVILLA APRN Aug 02, 2020 13:49 YOSELIN MURILLO DO Aug 02, 2020 15:58
[2020-08-02] MEDS ORDERED: HYDROcodone/APAP 5/325MG 1 TAB TABLET PO ONE (14:00)
[2020-08-02] MEDS ORDERED: ACYCLOVIR 200 MG CAPSULE PO ONE (14:00)
[2020-08-02] MEDS ORDERED: HYDROcodone/APAP 5/325MG 1 TAB TABLET ONE (14:01)
[2020-08-02] MEDS ORDERED: ACYC400T PO (14:31)
[2020-08-05 19:10] LABS: CHLAMYDIA PROBE Negative (Negative)
== END 2020-08-02 14:37 | disposition home or self-care (01) ==
LOC: ER 11:47
DX: B00.9 Herpesviral infection, unspecified (principal); R30.9 Painful micturition, unspecified; F41.9 Anxiety disorder, unspecified; F32.9 Major depressive disorder, single episode, unspecified; E11.9 Type 2 diabetes mellitus without complications; F17.210 Nicotine dependence, cigarettes, uncomplicated; F43.12 Post-traumatic stress disorder, chronic
CPT/HCPCS: 36415; 80053; 81001; 82010; 82947; 85025; 87480; 87491; 87510; 87591; 87660; 99284; Q0111

== ENCOUNTER 2021-06-16 00:49 | Emergency (ER) | payer MEDICAID ==
[~2021-06-16] VITALS: Ht 170.2 cm; Wt 74.8 kg
[~2021-06-16 00:49] MED LIST changes: +ACYC-12 PO; -DOXY100C2 PO; +DOXY100C3 PO; -LISI-334 PO; -LISI2.5T PO; +LISI2.5T12 PO; +LISI20TA18 PO
--- NOTE | 2021-06-16 00:55 | PHYS DOC ---
Past History Past Medical History: Anxiety, Bipolar, Depression, Diabetes Additional Past Medical Histor: PTSD Past Surgical History: No Surgical History Smoking: Cigarettes, Greater than 1 pack/day Alcohol Use: None Drug Use: None General Adult HPI: HPI: ".. I think .. I am 7 months .. and my water broke... " " I been feeling bad... I ve been vomiting.. and I need a sandwich.. Patient is a 46 year old female who presents with above hx and complaints "feeling bad and 7 months ...". Patient demanding food. Patient does have a past history of anxiety, bipolar disorder, depression, diabetes, PTSD, tobacco abuse, hyperlipidemia, genital herpes, COPD, tubal ligation, chronic back pain, 3 term 3. Patient has not had COVID vaccination. Patient had not had flu vaccination. Patient normally follows with Ct. Urine check showed the patient was not . Patient confronted with this information became somewhat angry. Patient stated she needed a place to stay tonight and she needed to be fed. Review of Systems: Review of Systems: Constitutional: Denies fever or chills Eyes: Denies change in visual acuity HENT: Denies nasal congestion or sore throat Respiratory: Denies cough or shortness of breath Cardiovascular: Denies chest pain or edema GI: Patient complains of being 7 months and her water had broken, abdominal pain, nausea, vomiting, bloody stools or diarrhea : Denies dysuria Musculoskeletal: Denies back pain or joint pain Integument: Denies rash Neurologic: Denies headache, focal weakness or sensory changes Endocrine: Denies polyuria or polydipsia Lymphatic: Denies swollen glands Psychiatric: Denies depression or anxiety Family History: Family History: Not currently available Current Medications: Current Meds: See nursing for home meds Allergies: Allergies: Allergies Coded Allergies Type Severity Reaction Last Updated Verified No Known Drug Allergies 12/20/13 No Physical Exam: PE: Constitutionalno acute distress, non-toxic appearance. [] HENT: Normocephalic, atraumatic, bilateral external ears normal, oropharynx moist, no oral exudates, nose normal. Poor dentition Eyes: PERRLA, EOMI, conjunctiva normal, no discharge. [] Neck: Normal range of motion, no tenderness, supple, no stridor. [] Cardiovascular:Heart rate regular rhythm, no murmur [] Lungs & Thorax: Bilateral breath sounds to apex and basilar crackles on auscultation [] Abdomen: Bowel sounds normal, soft, no tenderness, no masses, no pulsatile masses. Does not appear to be gravid. No rebound pain. Obese. Old surgical scar. Skin: Warm, dry, no erythema, no rash. [] Back: No tenderness, no CVA tenderness. [] Extremities: No tenderness, no cyanosis, no clubbing, ROM intact, no edema. No cording. Neurologic: Alert and oriented X 3, normal motor function, normal sensory function, no focal deficits noted. [] Psychologic: Affect angry, judgement normal, mood normal. Manipulative EKG: EKG: [] Radiology/Procedures: Radiology/Procedures: [] Heart Score: C/O Chest Pain: N/A Risk Factors: Risk Factors: DM, Current or recent (<one month) smoker, HTN, HLP, family history of CAD, obesity. Risk Scores: Score 0 - 3: 2.5% MACE over next 6 weeks - Discharge Home Score 4 - 6: 20.3% MACE over next 6 weeks - Admit for Clinical Observation Score 7 - 10: 72.7% MACE over next 6 weeks - Early Invasive Strategies Course & Med Decision Making: Course & Med Decision Making Pertinent Labs and Imaging studies reviewed. (See chart for details) Patient [facility] housing at [facility]. However patient became angry and actually had to be escorted off the property. Impression: 1. Malingering 2. History anxiety 3. History of bipolar disorder 4. History of diabetes 5. History of PTSD 6. Tobacco use 7. History borderline personality [] Dragon Disclaimer: Dragon Disclaimer: This electronic medical record was generated, in whole or in part, using a voice recognition dictation system. Departure Departure: Referrals: GORDON AMHER (PCP) Fay Disclaimer This chart was dictated in whole or in part using Voice Recognition software in a busy, high-work load, and often noisy Emergency Department environment. It may contain unintended and wholly unrecognized errors or omissions. Dragon Disclaimer This chart was dictated in whole or in part using Voice Recognition software in a busy, high-work load, and often noisy Emergency Department environment. It may contain unintended and wholly unrecognized errors or omissions. ALKA CLIFFORD MD Jun 16, 2021 00:55
[2021-06-16 00:57] VITALS: BP 134/81
[2021-06-16 01:35] LABS: U PREG PATIENT NEGATIVE (NEG)
[2021-06-16 01:56] LABS: BACTERIA,URINE FEW /HPF (0-FEW); BILIRUBIN,URINE NEG (NEG); CLARITY,URINE CLEAR; COLOR,URINE YELLOW; GLUCOSE,URINE NEG (NEG); NITRITE,URINE NEG (NEG); RBC,URINE 0 /HPF (0-2); SQUAMOUS EPITHELIAL CELL,UR MOD /LPF; UROBILINOGEN,URINE 0.2 mg/dL (0.2 mg/dL)
[2021-06-16 01:57] LABS: BARBITURATES NEG (NEG); BENZODIAZEPINES NEG (NEG); CANNABINOIDS NEG (NEG); COCAINE NEG (NEG); METHADONE NEG (NEG); OPIATES NEG (NEG); PHENCYCLIDINE NEG (NEG)
[2021-06-16 01:58] LABS: AMPHETAMINE/METHAMPHETAMINE NEG (NEG)
== END 2021-06-16 02:20 | disposition home or self-care (01) ==
LOC: ER 00:49
DX: Z76.5 Malingerer [conscious simulation] (principal); F41.9 Anxiety disorder, unspecified; F31.9 Bipolar disorder, unspecified; F43.10 Post-traumatic stress disorder, unspecified; E11.9 Type 2 diabetes mellitus without complications; F60.3 Borderline personality disorder; F17.210 Nicotine dependence, cigarettes, uncomplicated
CPT/HCPCS: 36415; 80307; 81001; 81025; 82947; 87086; 99283